=== PATIENT | male | born 1955 | race Caucasian/White ===

== ENCOUNTER 2018-04-17 22:54 | Inpatient (IN) | payer OTHER, BC ==
[~2018-04-17] VITALS: Ht 167.6 cm; Wt 124.0 kg
[2018-04-17 23:51] LABS: HEMATOCRIT 39.6 % (38.0-50.0); MCH 27.7 PG (29.0-34.0); MCHC 32.8 G/DL (30.0-36.0); MCV 84.4 FL (86-99); PLATELET COUNT 198 K/uL (156-360); RBC DIS.WIDTH-CV 14.6 % (11.8-14.6); RBC DIS.WIDTH-SD 44.3 % (39-53); RED BLOOD COUNT 4.69 M/uL (4.00-5.50); WHITE BLOOD COUNT 8.1 K/uL (4.1-10.2)
[2018-04-17 23:58] LABS: CHLORIDE 105 mEq/L (99-109); INTER. NORMALIZED RATIO 1.1; POTASSIUM 4.2 mEq/L (3.7-5.4); SODIUM 139 mEq/L (136-147)
[2018-04-18] LABS: GLUCOSE 155 mg/dL (70-99)
[2018-04-18 00:04] LABS: CREATININE 1.2 mg/dL (0.6-1.3); GFR ESTIMATE (CALCULATED) > 59 mL/min/ (58.99-99999)
[2018-04-18 00:05] LABS: UREA NITROGEN (BUN) 21 mg/dL (9-23)
[2018-04-18 03:40] VITALS: BP 147/74
[2018-04-18 08:42] VITALS: BP 131/63
[2018-04-18] MEDS ORDERED: AMLOD-VALSA-HC1 EAC2 PO (09:25)
[2018-04-18] MEDS ORDERED: QUINAPRIL HCL40 MG PO (09:41)
[2018-04-18] MEDS ORDERED: CRESTOR10 MG PO (09:42)
[2018-04-18] MEDS ORDERED: CELEBREX200 MG PO (09:42)
[2018-04-18] MEDS ORDERED: NEXIUM40 MG PO (09:43)
[2018-04-18] MEDS ORDERED: PAXIL10 MG PO (09:45)
[2018-04-18] MEDS ORDERED: NATURAL COD LI1 EACH PO ×2 (09:47→10:01)
[2018-04-18] MEDS ORDERED: MORPHINE SULFAT15 MG PO (09:48)
[2018-04-18] MEDS ORDERED: DIAZEPAM5 MG PO (09:51)
[2018-04-18] MEDS ORDERED: ROPINIROLE HCL3 MG PO (09:53)
[2018-04-18] MEDS ORDERED: TRILIPIX135 MG PO (09:54)
[2018-04-18] MEDS ORDERED: SYNTHROID100 MCG PO (09:56)
[2018-04-18] MEDS ORDERED: WELLBUTRIN XL300 MG PO (09:58)
[2018-04-18] MEDS ORDERED: MS CONTIN,ORAMO15 M1 PO (09:58)
[2018-04-18] MEDS ORDERED: ERGOCALCIF50000 UNIT PO (10:00)
[2018-04-18 11:16] VITALS: BP 174/80
[2018-04-18 14:36] LABS: BASOPHIL (%) 0.6 % (0-1); BASOPHIL COUNT 0.1 K/uL (0-0.1); EOSINOPHIL (%) 1.2 % (0-5); EOSINOPHIL COUNT 0.1 K/uL (0-0.3); HEMATOCRIT 38.6 % (38.0-50.0); HEMOGLOBIN 12.7 G/DL (12.5-16.6); IMMATURE GRANULOCYTE (%) 0.5 % (0.0-0.7); LYMPHOCYTE (%) 18.6 % (15-42); LYMPHOCYTE COUNT 1.5 K/uL (1.0-2.8); MCH 27.7 PG (29.0-34.0); MCHC 32.9 G/DL (30.0-36.0); MCV 84.1 FL (86-99); MONOCYTE (%) 7.1 % (3-12); MONOCYTE COUNT 0.6 K/uL (0-0.8); NEUTROPHIL COUNT 5.6 K/uL (1.8-6.4); PLATELET COUNT 170 K/uL (156-360); RBC DIS.WIDTH-CV 14.6 % (11.8-14.6); RBC DIS.WIDTH-SD 44.4 % (39-53); RED BLOOD COUNT 4.59 M/uL (4.00-5.50); WHITE BLOOD COUNT 7.8 K/uL (4.1-10.2)
[2018-04-18 14:47] LABS: CHLORIDE 105 mEq/L (99-109); POTASSIUM 4.2 mEq/L (3.7-5.4); SODIUM 137 mEq/L (136-147)
[2018-04-18 14:48] LABS: GLUCOSE 148 mg/dL (70-99)
[2018-04-18 14:52] LABS: GFR ESTIMATE (CALCULATED) > 59 mL/min/ (58.99-99999)
[2018-04-18 14:53] LABS: UREA NITROGEN (BUN) 15 mg/dL (9-23)
[2018-04-18] MEDS ORDERED: HYDROCODON-ACE1 EAC7 PO (15:17)
[2018-04-18 16:11] VITALS: BP 130/72
[2018-04-18 19:36] VITALS: BP 149/70
[2018-04-18 23:27] VITALS: BP 148/73
[2018-04-19 06:58] LABS: HEMATOCRIT 40.3 % (38.0-50.0); HEMOGLOBIN 12.9 G/DL (12.5-16.6); MCH 26.9 PG (29.0-34.0); MCV 84.1 FL (86-99); PLATELET COUNT 177 K/uL (156-360); RBC DIS.WIDTH-CV 14.6 % (11.8-14.6); RBC DIS.WIDTH-SD 44.6 % (39-53); RED BLOOD COUNT 4.79 M/uL (4.00-5.50); WHITE BLOOD COUNT 9.3 K/uL (4.1-10.2)
[2018-04-19 07:28] LABS: ALBUMIN 4.2 G/DL (3.2-4.8); ALKALINE PHOSPHATASE 38 IU/L (3-129); ALT (GPT) 47 IU/L (3-49); AST (GOT) 27 IU/L (2-34); CHLORIDE 102 MEQ/L (99-109); CREATININE 0.9 MG/DL (0.6-1.3); GFR ESTIMATE (CALCULATED) > 59 mL/min/ (58.99-99999); GLUCOSE 133 mg/dL (70-99); POTASSIUM 4.2 MEQ/L (3.7-5.4); SODIUM 137 MEQ/L (136-147); TOTAL BILIRUBIN 0.4 MG/DL (0.0-1.0); TOTAL PROTEIN 6.7 G/DL (6.4-8.3); UREA NITROGEN (BUN) 14 mg/dL (9-23)
[2018-04-19 07:58] VITALS: BP 127/60
[2018-04-19] MEDS ORDERED: IBUPROFEN800 MG PO (15:08)
[2018-04-19 16:11] VITALS: BP 166/84
[2018-04-19] MEDS ORDERED: ADULT FOLDING1 EACH MC (16:48)
[2018-04-19] MEDS ORDERED: HYDROCODON-ACE1 EAC7 PO (16:53)
== END 2018-04-19 18:08 | disposition home or self-care (01) | DRG 815 ==
LOC: EME 22:54 → TRA 22:54 → EDOF 04-18 02:37 → ENRESERV 04-18 02:38 → 3EAST 04-18 03:31
PROVIDERS: Emergency Medicine; Physician Assistant Medical; Student in an Organized Health Care Education/Training Program
DX: S36.039A Unspecified laceration of spleen, initial encounter (principal); V29.9XXA Motorcycle rider (driver) (passenger) injured in unspecified traffic accident, initial encounter; S22.42XA Multiple fractures of ribs, left side, initial encounter for closed fracture; E78.5 Hyperlipidemia, unspecified; I10 Essential (primary) hypertension; E66.01 Morbid (severe) obesity due to excess calories; Z68.41 Body mass index [BMI] 40.0-44.9, adult; Z96.642 Presence of left artificial hip joint; K76.0 Fatty (change of) liver, not elsewhere classified
CPT/HCPCS: 70450; 71045; 71046; 71260; 72125; 73080; 73130; 74177; 80048; 80053; 85025; 85027; 85610; 94799; 99281; 99285; J2270; J7120